=== PATIENT | female | born 1990 | race Caucasian/White ===

== ENCOUNTER 2019-06-21 22:38 | Emergency (ER) | payer OTHER ==
[~2019-06-21] VITALS: Ht 162.6 cm; Wt 103.4 kg
[2019-06-22] MEDS ORDERED: IBU400 MG PO (01:12)
[2019-06-22] MEDS ORDERED: DUI500 PO (01:49)
[2019-06-22] MEDS ORDERED: MUPIROCIN15 GM TOP (01:49)
[2019-06-22] MEDS ORDERED: IBU800 MG PO (01:49)
== END 2019-06-22 02:05 | disposition home or self-care (01) ==
LOC: ER 22:38
DX: L02.31 Cutaneous abscess of buttock (principal)